=== PATIENT | female | born 1985 | race Caucasian/White ===

== ENCOUNTER → 2023-12-14 16:25 | Outpatient (REF) | payer BC, SELFPAY | LOC: HWWDC 16:25 | PROVIDERS: ATTENDING PHYSICIAN Nurse Practitioner Adult Health | DX: Z12.31 Encounter for screening mammogram for malignant neoplasm of breast (principal) | CPT/HCPCS: 77063; 77067 ==

== ENCOUNTER → 2024-01-05 09:45 | Outpatient (REF) | payer BC, SELFPAY | LOC: HWRAD 09:45 | PROVIDERS: ATTENDING PHYSICIAN Nurse Practitioner Family; FAMILY PHYSICIAN Nurse Practitioner Adult Health | DX: R10.2 Pelvic and perineal pain (principal) | CPT/HCPCS: 76830; 76856 ==

== ENCOUNTER → 2024-12-19 09:10 | Outpatient (REF) | payer BC, SELFPAY | LOC: WDC 09:10 | PROVIDERS: ATTENDING PHYSICIAN Nurse Practitioner Adult Health | DX: N60.01 Solitary cyst of right breast (principal) | CPT/HCPCS: 76642; 77062; 77066 ==